=== PATIENT | female | born 1965 | race Caucasian/White ===

== ENCOUNTER → 2016-10-14 | Outpatient (CLI) | payer OTHER ==
[~2016-10-14] MED LIST: IBUPROFEN200 M1 PO; PRISTIQ50 MG PO; VIROPTIC7.5 ML BOTH EYES; XANAX0.25 MG PO; [UNRECOGNIZED DRUG - OTHER] PO
== END | disposition home or self-care (01) ==
LOC: MRI 13:01 → RAD 13:30
DX: G35 Multiple sclerosis (principal)
CPT/HCPCS: 70553

== ENCOUNTER 2017-04-28 18:45 | Inpatient (IN) | payer OTHER ==
[~2017-04-28] VITALS: Ht 162.6 cm; Wt 68.1 kg
[~2017-04-28 18:45] MED LIST changes: +LEXAPRO10 MG PO; +[UNRECOGNIZED DRUG - OTHER]
[2017-04-28 19:16] LABS: HEMATOCRIT 38.5 % (36.0-46.0); MCH 27.4 PG (29.0-34.0); MCHC 31.2 G/DL (30.0-36.0); MCV 87.9 FL (83-99); MEAN PLAT.VOLUME 9.2 uM^3 (9.5-12.4); PLATELET COUNT 314 K/uL (156-360); RBC DIS.WIDTH-CV 14.8 % (11.8-14.6); RBC DIS.WIDTH-SD 48.3 % (39-53); RED BLOOD COUNT 4.38 M/uL (3.80-5.20); WHITE BLOOD COUNT 7.9 K/uL (4.1-10.2)
[2017-04-28 19:29] LABS: CHLORIDE 103 mEq/L (99-109); POTASSIUM 3.7 mEq/L (3.7-5.4); SODIUM 141 mEq/L (136-147)
[2017-04-28 19:32] LABS: GLUCOSE 75 mg/dL (70-99)
[2017-04-28 19:33] LABS: ANION GAP 10 MEQ/L (2-14); TOTAL BILIRUBIN 0.1 mg/dL (0.0-1.0)
[2017-04-28 19:35] LABS: ALKALINE PHOSPHATASE 66 IU/L (3-129); GFR ESTIMATE (CALCULATED) > 59 mL/min/; SERUM ETHYL ALCOHOL 177 mg/dL
[2017-04-28 19:36] LABS: UREA NITROGEN (BUN) 12 mg/dL (9-23)
[2017-04-28 21:24] LABS: SALICYLATE < 5.0 MG/DL (15-30)
[2017-04-28 22:10] LABS: ADD MIUA? NO; BILIRUBIN NEGATIVE; BLOOD NEGATIVE; COLOR STRAW ((YELLOW)); GLUCOSE (STRIP) NEGATIVE; KETONES NEGATIVE; LEUKOCYTES NEGATIVE; NITRITE NEGATIVE; PROTEIN (STRIP) NEGATIVE; SPECIFIC GRAVITY 1.005 (1.000-1.030); UROBILINOGEN 0.2 MG/DL (0.2-1.0)
[2017-04-28 22:18] LABS: AMPHETAMINE NEGATIVE (500 ng/mL); BARBITURATES NEGATIVE (200 ng/mL); BENZODIAZEPINES PRESUMPTIVE POSITIVE (150 ng/mL); COCAINE NEGATIVE (150 ng/mL); INTERNAL CONTROLS VALID? YES; METHADONE NEGATIVE (200 ng/mL); METHAMPHETAMINE NEGATIVE (500 ng/mL); OPIATES (MORPHINE) NEGATIVE (100 ng/mL); OXYCODONE NEGATIVE (100 ng/mL); PHENCYCLIDINE NEGATIVE (25 ng/mL); PROPOXYPHENE NEGATIVE (300 ng/mL); THC CANNABINOIDS NEGATIVE (50 ng/mL); TRICYCLIC ANTIDEPRESSANTS NEGATIVE (300 ng/mL)
[2017-04-28 22:19] LABS: ADD MEDTOX COMMENT Y
[2017-04-28 22:49] LABS: BENZODIAZEPINES, URINE SCREEN POSITIVE (200 ng/mL)
[2017-04-29 03:56] LABS: POTASSIUM 3.8 mEq/L (3.7-5.4); SODIUM 144 mEq/L (136-147)
[2017-04-29 03:57] LABS: GLUCOSE 85 mg/dL (70-99)
[2017-04-29 03:59] LABS: ANION GAP 5 MEQ/L (2-14)
[2017-04-29 04:01] LABS: GFR ESTIMATE (CALCULATED) > 59 mL/min/
[2017-04-29 04:02] LABS: UREA NITROGEN (BUN) 10 mg/dL (9-23)
[2017-04-29 04:05] LABS: CHLORIDE 116 mEq/L (99-109)
[2017-04-29 12:57] VITALS: BP 181/79
[2017-04-29 13:00] VITALS: BP 181/79
[2017-04-29 15:37] VITALS: BP 139/79
[2017-04-29] MEDS ORDERED: LEXAPRO20 MG PO (15:46)
[2017-04-30 07:55] VITALS: BP 171/89
[2017-04-30 15:59] VITALS: BP 151/70
[2017-04-30 17:01] VITALS: BP 170/74
[2017-05-01 08:17] VITALS: BP 162/91
[2017-05-01 16:15] VITALS: BP 156/75
[2017-05-02 07:56] VITALS: BP 131/75
[2017-05-02] MEDS ORDERED: DESYREL100 MG PO (08:32)
[2017-05-02] MEDS ORDERED: ESCITALOPRAM OX20 MG PO (08:32)
[2017-05-02] MEDS ORDERED: HYDROXYZINE PAM25 MG PO (10:28)
== END 2017-05-02 10:35 | disposition home or self-care (01) | DRG 885 ==
LOC: EME 18:45 → 1WEST 04-29 11:54 → EDOF 04-29 11:54 → ENRESERV 04-29 12:59 → 1WEST 04-29 12:59
PROVIDERS: Emergency Medicine
DX: F33.1 Major depressive disorder, recurrent, moderate (principal); T42.4X2A Poisoning by benzodiazepines, intentional self-harm, initial encounter; F10.220 Alcohol dependence with intoxication, uncomplicated; I95.9 Hypotension, unspecified; T39.312A Poisoning by propionic acid derivatives, intentional self-harm, initial encounter; Y90.6 Blood alcohol level of 120-199 mg/100 ml; F43.21 Adjustment disorder with depressed mood
CPT/HCPCS: 80048; 80053; 81003; 84100; 84999; 85027; 90839; 93005; 97150 GO; 97165 GO; 99281; 99284; G0480; J0610; J7030; J7050; Q0177

== ENCOUNTER → 2017-05-13 | Outpatient (CLI) | payer OTHER ==
[~2017-05-13] MED LIST changes: +DESYREL100 MG PO; +ESCITALOPRAM OX20 MG PO; +HYDROXYZINE PAM25 MG PO; +LEXAPRO20 MG PO
== END | disposition home or self-care (01) ==
LOC: CDC 09:34
DX: G35 Multiple sclerosis (principal)
CPT/HCPCS: 93000

== ENCOUNTER → 2017-06-13 | Outpatient (CLI) | payer OTHER ==
[~2017-06-13] MED LIST changes: +GILENYA0.5 MG PO; +WELLBUTRIN SR150 MG PO
== END | disposition home or self-care (01) ==
LOC: RAD 16:31
DX: R60.0 Localized edema (principal); R06.02 Shortness of breath
CPT/HCPCS: 71020; 93971

== ENCOUNTER → 2017-07-09 | Outpatient (CLI) | payer OTHER ==
[~2017-07-09] MED LIST changes: +LASIX20 MG PO; +NEXIUM40 MG PO
== END | disposition home or self-care (01) ==
LOC: EKG 13:00
DX: I34.0 Nonrheumatic mitral (valve) insufficiency (principal); I07.1 Rheumatic tricuspid insufficiency; I51.5 Myocardial degeneration; R60.0 Localized edema
CPT/HCPCS: 93306

== ENCOUNTER → 2017-08-29 | Outpatient (CLI) | payer OTHER ==
[~2017-08-29] VITALS: Ht 162.6 cm; Wt 79.4 kg
[~2017-08-29] MED LIST changes: +BRINTELLIX20 MG PO; +FEOSOL325 MG PO; +HYDROXYZINE HCL25 MG PO; +VIVITROL380 MG/3.4 IM
[2017-08-29 13:33] LABS: HEMATOCRIT 40.7 % (36.0-46.0); HEMOGLOBIN 12.5 G/DL (11.9-15.5); MCV 81.6 FL (83-99)
== END | disposition home or self-care (01) ==
LOC: AMB 12:30
PROVIDERS: Internal Medicine
DX: D50.9 Iron deficiency anemia, unspecified (principal); R12 Heartburn; Z87.11 Personal history of peptic ulcer disease; G35 Multiple sclerosis; F10.20 Alcohol dependence, uncomplicated; F32.9 Major depressive disorder, single episode, unspecified; F41.1 Generalized anxiety disorder; I10 Essential (primary) hypertension
CPT/HCPCS: 85014; 85018; J2250; J3010

== ENCOUNTER → 2017-09-11 | Outpatient (CLI) | payer OTHER | END | disposition home or self-care (01) | LOC: EKG 08:56 | DX: Z79.899 Other long term (current) drug therapy (principal); G35 Multiple sclerosis | CPT/HCPCS: 93005 ==

== ENCOUNTER → 2017-09-11 | Outpatient (CLI) | payer OTHER | END | disposition home or self-care (01) | LOC: CDC 15:02 | DX: R00.1 Bradycardia, unspecified (principal); Z79.899 Other long term (current) drug therapy | CPT/HCPCS: 93000 ==